=== PATIENT | female | born 1965 | race Caucasian/White ===

== ENCOUNTER 2017-10-23 13:36 | Emergency (ER) | payer OTHER ==
[2017-10-23 13:45] VITALS: BP 133/84; PULSE 76; TEMP 98.2; BMI 29.2
--- NOTE | 2017-10-23 14:23 | PDOC ---
History of Present Illness - General Chief Complaint: Pain Stated Complaint: HEADACHES Time Seen by Provider: 10/23/17 14:09 - History of Present Illness Initial Comments: 51-year-old female presents for evaluation of high blood pressure. She dates she took her blood pressure last night and it was 160/90 at home she took an aspirin. She did have a lapse in her insurance for a number of years and she decided to follow-up in the emergency room today. She has no other complaints. No other associated symptoms. She denies headache. 10/23/17 14:20 Past History - Past Medical History Allergies/Adverse Reactions: Allergies Allergy/AdvReac Type Severity Reaction Status Date / Time Penicillins Allergy Mild Rash Verified 10/23/17 13:39 Home Medications: Ambulatory Orders NK [No Known Home Medication] 10/23/17 Anemia: Yes COPD: No - Surgical History Abdominal Surgery: Yes Appendectomy: Yes - Suicide/Smoking/Psychosocial Hx Smoking Status: No Smoking History: Never smoked Number of Cigarettes Smoked Daily: 0 Hx Alcohol Use: No Substance Use Type: None Review of Systems - Review of Systems Comments:: GENERAL/CONSTITUTIONAL: [No fever or chills. No weakness. No weight change.] HEAD, EYES, EARS, NOSE AND THROAT: [No change in vision. No ear pain or discharge. No sore throat.] CARDIOVASCULAR: [No chest pain or shortness of breath.] RESPIRATORY: [No cough, wheezing, or hemoptysis.] GASTROINTESTINAL: [No nausea, vomiting, diarrhea or constipation. No rectal bleeding.] GENITOURINARY: [No dysuria, frequency, or change in urination.] MUSCULOSKELETAL: [No joint or muscle swelling or pain. No neck or back pain.] SKIN AND BREASTS: [No rash or easy bruising.] NEUROLOGIC: [No headache, vertigo, loss of consciousness, or loss of sensation.] PSYCHIATRIC: [No depression or anxiety.] ENDOCRINE: [No increased thirst. No abnormal weight change.] HEMATOLOGIC/LYMPHATIC: [No anemia, easy bleeding, or history of blood clots.] ALLERGIC/IMMUNOLOGIC: [No hives or skin allergy. No latex allergy.] 10/23/17 14:20 *Physical Exam - Vital Signs Last Vital Signs Temp Pulse Resp BP Pulse Ox 98.2 F 76 19 133/84 100 10/23/17 13:40 10/23/17 13:40 10/23/17 13:40 10/23/17 13:40 10/23/17 13:40 - Physical Exam Comments: GENERAL: [The patient is awake, alert, and fully oriented, in no acute distress. ] HEAD: [Normal with no signs of trauma.] EYES: [Pupils equal, round and reactive to light, extraocular movements intact, sclera anicteric, conjunctiva clear.] ENT: [Ears normal, nares patent, oropharynx clear without exudates. Moist mucous membranes.] NECK: [Normal range of motion, supple without lymphadenopathy, JVD, or masses.] LUNGS: [Breath sounds equal, clear to auscultation bilaterally. No wheezes, and no crackles.] HEART: [Regular rate and rhythm, normal S1 and S2 without murmur, rub or gallop. ] ABDOMEN: [Soft, nontender, normoactive bowel sounds. No guarding, no rebound. No masses.] EXTREMITIES: [Normal range of motion, no edema. No clubbing or cyanosis. No cords, erythema, or tenderness.] NEUROLOGICAL: [Cranial nerves II through XII grossly intact. Normal speech, normal gait.] PSYCH: [Normal mood, normal affect.] SKIN: [Warm, Dry, normal turgor, no rashes or lesions noted.] 10/23/17 14:21 *DC/Admit/Observation/Transfer Diagnosis at time of Disposition: Health counseling - Discharge Dispostion Disposition: HOME Condition at time of disposition: Stable Decision to Admit order: No - Referrals Referrals: Claudette De La Cruz MD [Staff Physician] - Fareed Denise MD [Staff Physician] - Selwyn Velez MD [Staff Physician] - Sherrie Mead MD [Staff Physician] - Josie Nolan MD [Staff Physician] - - Patient Instructions Additional Instructions: And given you a number of doctors to follow up with. You have no emergency going on today and nothing that requires immediate intervention. Follow-up with the primary care doctor from the list within the next day or so. The emergency room if should develop chest pain or shortness of breath. - Post Discharge Activity
== END 2017-10-23 14:26 | disposition home or self-care (01) ==
LOC: JERFT 13:36
DX: Z03.89 Encounter for observation for other suspected diseases and conditions ruled out (principal); Z71.89 Other specified counseling
CPT/HCPCS: 99281-25

== ENCOUNTER 2018-05-28 22:12 | Emergency (ER) | payer OTHER ==
--- NOTE | 2018-05-29 00:03 | PDOC ---
History of Present Illness <Marla Strange - Last Filed: 05/29/18 01:38> - History of Present Illness Initial Comments: 05/29/18 02:26 The patient is a 52 year old female, with a significant past medical history of anemia and uterine fibroid, who presents to the emergency department with left foot and ankle pain after slipping and falling forward onto hands and knees in a [employer] parking lot around 1:30PM. She states she had to go to work today, however, has been experiencing constant pain which is exacerbated with walking. She denies any numbness or tingling. Denies other injuries, no head strike or LOC. No treatments tried. The patient denies chest pain, shortness of breath, headache and dizziness. The patient denies fever, chills, nausea, vomit, diarrhea and constipation. The patient denies dysuria, frequency, urgency and hematuria. Allergies: NKDA <Karie Canchola - Last Filed: 05/29/18 02:31> - General Chief Complaint: Injury Stated Complaint: FALL Time Seen by Provider: 05/29/18 00:03 Past History <Marla Strange - Last Filed: 05/29/18 01:38> - Past Medical History Anemia: Yes COPD: No - Surgical History Abdominal Surgery: Yes Appendectomy: Yes - Suicide/Smoking/Psychosocial Hx Smoking Status: No Smoking History: Never smoked Have you smoked in the past 12 months: No Number of Cigarettes Smoked Daily: 0 Information on smoking cessation initiated: No Hx Alcohol Use: No Drug/Substance Use Hx: No Substance Use Type: None <Karie Canchola - Last Filed: 05/29/18 02:31> - Past Medical History Allergies/Adverse Reactions: Allergies Allergy/AdvReac Type Severity Reaction Status Date / Time Penicillins Allergy Mild Rash Verified 05/28/18 22:18 Home Medications: Ambulatory Orders Naproxen 500 mg PO BID PRN #14 tablet 05/29/18 Review of Systems - Review of Systems Comments:: 05/29/18 02:27 GENERAL/CONSTITUTIONAL: No fever or chills. No weakness. HEAD, EYES, EARS, NOSE AND THROAT: No change in vision. No ear pain or discharge. No sore throat. GASTROINTESTINAL: No nausea, vomiting, diarrhea or constipation. GENITOURINARY: No dysuria, frequency, or change in urination. CARDIOVASCULAR: No chest pain or shortness of breath. RESPIRATORY: No cough, wheezing, or hemoptysis. MUSCULOSKELETAL: (+) left foot and ankle pain. No joint or muscle swelling. No neck or back pain. SKIN: No rash NEUROLOGIC: No headache, vertigo, loss of consciousness, or change in strength/ sensation. ENDOCRINE: No increased thirst. No abnormal weight change. HEMATOLOGIC/LYMPHATIC: No anemia, easy bleeding, or history of blood clots. ALLERGIC/IMMUNOLOGIC: No hives or skin allergy. <Karie Canchola - Last Filed: 05/29/18 02:31> *Physical Exam - Vital Signs Last Vital Signs Temp Pulse Resp BP Pulse Ox 98.0 F 80 16 167/74 100 05/28/18 22:14 05/28/18 22:14 05/28/18 22:14 05/28/18 22:14 05/28/18 22:14 <Marla Strange - Last Filed: 05/29/18 01:38> - Vital Signs Last Vital Signs Temp Pulse Resp BP Pulse Ox 98.0 F 80 16 167/74 100 05/28/18 22:14 05/28/18 22:14 05/28/18 22:14 05/28/18 22:14 05/28/18 22:14 - Physical Exam Comments: 05/29/18 02:28 GENERAL: Awake, alert, and fully oriented, in no acute distress HEAD: No signs of trauma EYES: PERRLA, sclera anicteric, conjunctiva clear ENT: Oropharynx clear without exudates. Moist mucosa LUNGS: Breath sounds equal, clear to auscultation bilaterally. No wheezes, and no crackles HEART: Regular rate and rhythm, normal S1 and S2, no murmurs, rubs or gallops ABDOMEN: Soft, nontender, normoactive bowel sounds. No guarding, no rebound. No masses EXTREMITIES: (+) tenderness inferior to lateral mallelous and lateral arch of left foot. mild edema over lateral mallelous. 2+ DP and posterio tibialis pulses. Full strength dorsi and plantar flexion. WWP. Normal range of motion,. No clubbing or cyanosis. No cords, erythema. BACK: No midline spinal tenderness in cervical/thoracic/lumbar region NEUROLOGICAL: Normal speech, cranial nerves intact, equal strength and sensation b/l, antalgic but steady gait SKIN: Warm, Dry, normal turgor, no rashes or lesions noted. <Karie Canchola - Last Filed: 05/29/18 02:31> Moderate Sedation - Procedure Monitoring Vital Signs: Procedure Monitoring Vital Signs Temperature 98.0 F 05/28/18 22:14 Pulse Rate 80 05/28/18 22:14 Respiratory Rate 16 05/28/18 22:14 Blood Pressure 167/74 05/28/18 22:14 O2 Sat by Pulse Oximetry (%) 100 05/28/18 22:14 <Marla Strange - Last Filed: 05/29/18 01:38> - Procedure Monitoring Vital Signs: Procedure Monitoring Vital Signs Temperature 98.0 F 05/28/18 22:14 Pulse Rate 80 05/28/18 22:14 Respiratory Rate 16 05/28/18 22:14 Blood Pressure 167/74 05/28/18 22:14 O2 Sat by Pulse Oximetry (%) 100 05/28/18 22:14 <Karie Canchola - Last Filed: 05/29/18 02:31> ED Treatment Course - RADIOLOGY Radiograph Interpretation: EXAM: X-ray left ankle and x-ray left foot IMPRESSION: No fracture of the left ankle or foot. Ryne Mirza MD 05/29/2018 01:30 EST - Medications Given in the ED: ED Medications Discontinued Medications Generic Name Dose Route Start Last Admin Trade Name Freq PRN Reason Stop Dose Admin Naproxen 500 mg 05/29/18 00:10 05/29/18 01:01 Naprosyn - PO 05/29/18 00:11 500 mg ONCE ONE Administration <Marla Strange - Last Filed: 05/29/18 01:38> Medical Decision Making - Medical Decision Making 05/29/18 00:18 52yo hx anemia presents to the ED with ankle and foot pain after a slip and fall 10 hours ago. BP elevated on arrival, will repeat. Otherwise vitals wnl. Exam with ttp along lateral arch of L foot and inf to lateral malleolus. Foot is NVI, WWP. No concern for lisfranc as no midfoot ttp, and mechanism unlikely to cause lisfranc. Plan for XR to r/o bony injury, pain control, reassess. 05/29/18 02:20 XR negative Pain well controlled Thanh wrap placed Pt able to ambulate Stable for DC home I discussed the physical exam findings, ancillary test results and final diagnoses with the patient. I answered all of the patient's questions. The patient was satisfied with the care received and felt comfortable with the discharge plan and treatment plan. The patient will call their primary care physician within 24 hours to arrange follow-up and will return to the Emergency Department with any new, persistent or worsening symptoms. <Karie Canchola - Last Filed: 05/29/18 02:31> *DC/Admit/Observation/Transfer - Attestations Scribe Attestion: 05/29/18 01:39 Documentation prepared by Marla Strange, acting as medical massage therapist for Karie Canchola MD <Marla Strange - Last Filed: 05/29/18 01:38> - Discharge Dispostion Decision to Admit order: No - Attestations Physician Attestion: 05/29/18 02:23 I, Dr. Karie Canchola MD, attest that this document has been prepared under my direction and personally reviewed by me in its entirety. I further attest, that it accurately reflects all work, treatment, procedures and medical decision -making performed by me. <Karie Canchola - Last Filed: 05/29/18 02:31> Diagnosis at time of Disposition: Ankle sprain, Foot pain - Discharge Dispostion Disposition: HOME Condition at time of disposition: Stable - Prescriptions Prescriptions: Naproxen 500 mg PO BID PRN #14 tablet PRN Reason: Pain - Referrals Referrals: Sherrie Mead MD [Primary Care Provider] - Frederic Ellington MD [Staff Physician] - - Patient Instructions Printed Discharge Instructions: DI for Ankle Pain, DI for Foot Pain Additional Instructions: Call Dr. Ellington's office tomorrow to make a follow up appointment within 1 week Take naproxen as needed for pain Keep your left leg elevated and apply ice for 20 mins at a time 3-4 times a day Return to the emergency department if you have any new, worsening, or concerning symptoms - Post Discharge Activity Forms/Work/School Notes: Back to Work
[2018-05-29] MEDS ORDERED: NAPROXEN 500 MG TABLET (FP) PO ONE (00:10)
[2018-05-29] MEDS ORDERED: NAPROXEN 500 MG TABLET (FP) ONE (00:27)
[2018-05-29 02:22] VITALS: BP 100/62; PULSE 100; TEMP 97.8
== END 2018-05-29 02:50 | disposition home or self-care (01) ==
LOC: JER 22:12
DX: S93.492A Sprain of other ligament of left ankle, initial encounter (principal); W01.0XXA Fall on same level from slipping, tripping and stumbling without subsequent striking against object, initial encounter; Y93.89 Activity, other specified; Y92.481 Parking lot as the place of occurrence of the external cause; Y99.8 Other external cause status
CPT/HCPCS: 73610-TC-LT-FY; 73630-TC-LT; 99281-25